=== PATIENT | male | born 1990 | race Caucasian/White ===

== ENCOUNTER 2019-06-14 16:16 | Emergency (ER) | payer SELFPAY ==
[~2019-06-14] VITALS: Ht 170.2 cm; Wt 64.0 kg
--- NOTE | 2019-06-14 16:20 | NUR ---
C/O LOWER ABDOMINAL PAIN RADIATES TO BACK, BURNING SENSATION DURING URINATION, HX OF UTI FINISHED THE ANTIBIOTIC REGIMEN X 2 DAYS AGO. PATIENT A/OX4, BREATHING EVEN AND UNLABORED, NO DISTRESS NOTED, NEEDS ATTENDED.
[2019-06-14] MEDS ORDERED: ACETAMINOPHEN ES 500 MG TABLET PO ONE (17:30)
--- NOTE | 2019-06-14 17:30 | NUR ---
US TECH AT BEDSIDE
[2019-06-14 17:34] LABS: BASOPHILS % (AUTO) 0.5 % (0.0-2.0); EOSINOPHILS % (AUTO) 0.5 % (0.0-6.0); HEMATOCRIT 45 % (39-51); HEMOGLOBIN 15.7 g/dL (13.5-17.5); LYMPHOCYTES # (AUTO) 1.8 /CMM (0.8-4.8); LYMPHOCYTES % (AUTO) 25.9 % (20.0-44.0); MEAN CORPUSCULAR HGB CONC 35 g/dl (31.0-36.0); MEAN CORPUSCULAR VOLUME 88 fL (80-96); MONOCYTES # (AUTO) 0.6 /CMM (0.1-1.30); MONOCYTES % (AUTO) 8.5 % (2.0-12.0); NEUTROPHILS # (AUTO) 4.4 /CMM (1.8-8.9); NEUTROPHILS % (AUTO) 64.6 % (43.0-81.0); PLATELET COUNT (AUTO) 224 /CMM (150-450); RED BLOOD CELL COUNT(AUTO) 5.12 MIL/uL (4.5-6.0); WHITE BLOOD COUNT (AUTO) 6.8 K/uL (4.3-11.0)
[2019-06-14] MEDS ORDERED: ACETAMINOPHEN ES 500 MG TABLET ONE (17:34)
[2019-06-14 17:43] LABS: POTASSIUM 4.1 mmol/L (3.5-5.1)
[2019-06-14 17:49] LABS: ALBUMIN 4.4 g/dL (3.4-5.0); BILIRUBIN,DIRECT 0.3 mg/dL (0.0-0.2); BILIRUBIN,TOTAL 1.6 mg/dL (0.2-1.0); TOTAL PROTEIN, SERUM 7.7 g/dL (6.4-8.2)
[2019-06-14 18:02] LABS: APPEARANCE,URINE SLIGHTLY HAZY (CLEAR); BILIRUBIN,URINE Negative (NEGATIVE); BLOOD, URINE Trace-intact Ery/uL (NEGATIVE); COLOR,URINE Light yellow (YELLOW); KETONES,URINE Negative (NEGATIVE); LEUKOCYTE ESTERASE ,URINE Small (NEGATIVE); NITRITE, URINE Negative (NEGATIVE); PH,URINE 6.5 (5.0-8.0); PROTEIN,URINE Negative (NEGATIVE); UGLUCOSE Negative (NEGATIVE); UROBILINOGEN,URINE 0.2 EU/dL (0.2)
--- NOTE | 2019-06-14 18:07 | NUR ---
REPORT GIVEN TO JAVIER SOTO FOR TRINH.
[2019-06-14 18:12] LABS: RBC,URINE 0-2 /HPF (0-2)
[2019-06-14 18:13] LABS: BACTERIA,URINE Few /HPF (None Seen); SQUAMOUS EPITHELIAL CELL,UR Rare /HPF (None Seen)
[2019-06-14] MEDS ORDERED: LIDOCAINE /MPF 1% VIAL 5 ML VIAL ONE (19:17)
[2019-06-14] MEDS ORDERED: CEFTRIAXONE 1 G VIAL ONE (19:17)
[2019-06-14 19:27] VITALS: BP 125/75
--- NOTE | 2019-06-14 19:27 | NUR ---
Patient discharged to home in stable condition. Written and verbal after care instructions given. Patient verbalizes understanding of instruction.
[2019-06-14] MEDS ORDERED: CEFTRIAXONE 1 G VIAL IM ONE (19:30)
== END 2019-06-14 19:28 | disposition home or self-care (01) ==
LOC: ER 16:21
DX: N12 Tubulo-interstitial nephritis, not specified as acute or chronic (principal); Z60.2 Problems related to living alone
CPT/HCPCS: 36415; 76700; 76870; 80048; 80076; 81001; 83690; 85025; 87040 ×2; 87086; 96372; 99284; J0696; J3490; 81000-TC

== ENCOUNTER 2019-06-29 17:00 | Emergency (ER) | payer MEDICAID ==
[~2019-06-29] VITALS: Ht 170.2 cm; Wt 64.0 kg
[2019-06-29 17:15] VITALS: BP 115/66
[2019-06-29 18:13] LABS: APPEARANCE,URINE Clear (CLEAR); BILIRUBIN,URINE Negative (NEGATIVE); BLOOD, URINE Trace-intact Ery/uL (NEGATIVE); COLOR,URINE Yellow (YELLOW); KETONES,URINE Negative (NEGATIVE); LEUKOCYTE ESTERASE ,URINE Negative (NEGATIVE); NITRITE, URINE Negative (NEGATIVE); PH,URINE 6.5 (5.0-8.0); PROTEIN,URINE Negative (NEGATIVE); UGLUCOSE Negative (NEGATIVE); UROBILINOGEN,URINE 0.2 EU/dL (0.2)
[2019-06-29 18:27] LABS: BACTERIA,URINE Rare /HPF (None Seen); RBC,URINE 0-2 /HPF (0-2); SQUAMOUS EPITHELIAL CELL,UR Rare /HPF (None Seen); WBC,URINE NONE SEEN /HPF (0-3)
== END 2019-06-29 19:30 | disposition home or self-care (01) ==
LOC: ER 17:00
DX: K59.00 Constipation, unspecified (principal); R10.32 Left lower quadrant pain; R10.31 Right lower quadrant pain; M54.5 Low back pain; Z60.2 Problems related to living alone
CPT/HCPCS: 74018; 81000-TC